=== PATIENT | male | born 1985 | race African-American/Black ===

== ENCOUNTER 2023-02-14 20:58 | Emergency (ER) | payer OTHER ==
[~2023-02-14] VITALS: Ht 162.6 cm; Wt 83.0 kg
[~2023-02-14 20:58] MED LIST: PREDNISONE50 MG PO; VENTOLIN HFA108 MCG PO; ZPAK PO
[2023-02-14] MEDS ORDERED: IBUPROFEN600 MG PO (22:27)
[2023-02-14] MEDS ORDERED: CLINDAMYCIN300 M1 PO (22:27)
[2023-02-14 22:38] VITALS: BP 112/75
== END 2023-02-14 22:48 | disposition home or self-care (01) ==
LOC: ED 20:58
DX: K08.89 Other specified disorders of teeth and supporting structures (principal); E78.5 Hyperlipidemia, unspecified; Z72.0 Tobacco use

== ENCOUNTER 2023-03-26 17:41 | Emergency (ER) | payer BC, OTHER ==
[~2023-03-26] VITALS: Ht 162.6 cm; Wt 83.9 kg
[~2023-03-26 17:41] MED LIST changes: +CLINDAMYCIN300 M1 PO; +IBUPROFEN600 MG PO
[2023-03-26 19:27] VITALS: BP 144/94
[2023-03-26 19:30] VITALS: BP 144/95
[2023-03-26] MEDS ORDERED: CLINDAMYCIN HCL 150 MG CAP PO ONE (19:35)
[2023-03-26] MEDS ORDERED: NAPROXEN 250 MG/TAB PO ONE (19:35)
[2023-03-26 19:45] VITALS: BP 131/78
[2023-03-26] MEDS ORDERED: NAPROXEN500 MG PO (19:51)
[2023-03-26 21:00] VITALS: BP 131/78
== END 2023-03-26 21:00 | disposition home or self-care (01) | DRG 159 ==
LOC: ED 17:41
DX: S02.5XXA Fracture of tooth (traumatic), initial encounter for closed fracture (principal); E78.5 Hyperlipidemia, unspecified; F17.200 Nicotine dependence, unspecified, uncomplicated; X58.XXXA Exposure to other specified factors, initial encounter

== ENCOUNTER 2023-09-03 22:22 | Emergency (ER) | payer BC, OTHER ==
[~2023-09-03] VITALS: Ht 162.6 cm; Wt 70.0 kg
[~2023-09-03 22:22] MED LIST changes: +NAPROXEN500 MG PO; +SUBOXONE1 MI1 SL; +TORADOL PO
[2023-09-04] VITALS: BP 128/74
== END 2023-09-04 | disposition home or self-care (01) | DRG 179 ==
LOC: ED 22:22
DX: U07.1 COVID-19 (principal); R50.9 Fever, unspecified; R05.9 Cough, unspecified; M79.10 Myalgia, unspecified site; R51.9 Headache, unspecified; E78.5 Hyperlipidemia, unspecified; Z72.0 Tobacco use

== ENCOUNTER 2023-11-14 16:32 | Emergency (ER) | payer BC, OTHER ==
[~2023-11-14] VITALS: Ht 162.6 cm; Wt 90.7 kg
[2023-11-14 16:37] VITALS: BP 116/88
[2023-11-14] MEDS ORDERED: PENICILLN VK500 MG PO (16:45)
[2023-11-14] MEDS ORDERED: NAPROXEN500 MG PO (16:45)
[2023-11-14] MEDS ORDERED: KETOROLAC TROMETHAMINE 30 MG/ML SDV IM ONE (16:45)
[2023-11-14 16:53] VITALS: BP 126/92
[2023-11-14 16:54] VITALS: BP 129/98
[2023-11-14 16:55] VITALS: BP 129/98
== END 2023-11-14 17:00 | disposition home or self-care (01) | DRG 159 ==
LOC: ED 16:32
DX: K04.7 Periapical abscess without sinus (principal); K02.9 Dental caries, unspecified; S02.5XXA Fracture of tooth (traumatic), initial encounter for closed fracture; E78.5 Hyperlipidemia, unspecified; Z72.0 Tobacco use; X58.XXXA Exposure to other specified factors, initial encounter